=== PATIENT | female | born 1990 | race Caucasian/White ===

== ENCOUNTER 2019-07-17 20:42 | Inpatient (IN) | payer OTHER ==
[~2019-07-17] VITALS: Ht 167.6 cm; Wt 102.5 kg
[2019-07-17] MEDS ORDERED: METHYLERGONOVINE 0.2 MG/ML AMP IM PRN (21:55)
[2019-07-17] MEDS ORDERED: OXYTOCIN 20 UNITS in LACTATED RINGERS 1,000 ML IV SCH (21:55)
[2019-07-17] MEDS ORDERED: fentaNYL 0.05 MG/ML VIAL IVP PRN (21:55)
[2019-07-17 22:41] LABS: BASOPHILS % (AUTO) 0.3 % (0.0-2.0); EOSINOPHILS % (AUTO) 0.4 % (0.0-4.0); HEMATOCRIT 36.3 % (36-48); HEMOGLOBIN 12.3 g/dL (12.0-16.0); LYMPHOCYTES # (AUTO) 1.5 K/uL (2.5-16.5); LYMPHOCYTES % (AUTO) 17.2 % (20.5-51.1); MEAN CORPUSCULAR HEMOGLOBIN 30 pg (27-31); MEAN CORPUSCULAR HGB CONC 34 g/dL (33-37); MEAN CORPUSCULAR VOLUME 88.8 fL (80-94); MONOCYTES # (AUTO) 0.5 K/uL (0.8-1.0); MONOCYTES % (AUTO) 6.2 % (1.7-9.3); NEUTROPHILS # (AUTO) 6.5 K/uL (1.8-7.7); NEUTROPHILS % (AUTO) 75.9 % (42.2-75.2); PLATELET COUNT (AUTO) 148 K/uL (140-450); RED BLOOD CELL COUNT(AUTO) 4.09 MIL/uL (4.20-5.40); RED CELL DISTRIBUTION WIDTH 14.6 % (11.6-13.7); WHITE BLOOD COUNT (AUTO) 8.5 K/uL (4.8-10.8)
[2019-07-17 22:54] LABS: APPEARANCE,URINE CLEAR (CLEAR); BILIRUBIN,URINE NEGATIVE (NEGATIVE); BLOOD, URINE 1+ (NEGATIVE); COLOR,URINE YELLOW (YELLOW); LEUKOCYTE ESTERASE ,URINE NEGATIVE (NEGATIVE); NITRITE, URINE NEGATIVE (NEGATIVE); PH,URINE 6.5 (5.0-9.0); UGLUCOSE NEGATIVE (NEGATIVE)
[2019-07-17 22:55] LABS: ALBUMIN 2.6 g/dL (3.4-5.0); CREATININE 0.7 mg/dL (0.6-1.3); TOTAL BILIRUBIN 0.3 mg/dL (0.0-1.0)
[2019-07-17 23:13] VITALS: BP 120/68
[2019-07-17 23:34] LABS: RBC,URINE 11-20 (MOD) /HPF (0-5); WBC,URINE 0-5 /HPF (0-5)
[2019-07-17] MEDS ORDERED: AMPICILLIN 2,000 MG in NACL 0.9% 100 ML IV SCH (23:50)
[2019-07-17] MEDS ORDERED: AMPICILLIN 2,000 MG VIAL ONE (23:53)
[2019-07-18] MEDS ORDERED: OXYTOCIN 20 UNITS/LR PREMIX 1,000 ML IV ONE (01:00)
[2019-07-18] MEDS ORDERED: AMPICILLIN 1,000 MG VIAL ONE ×5 (03:59→19:55)
[2019-07-18] MEDS: AMPICILLIN 1,000 MG in NACL 0.9% 50 ML IV SCH ×4 (04:05→16:09)
[2019-07-18] MEDS: LACTATED RINGERS 1,000 ML IV SCH ×2 (06:12→16:07)
[2019-07-18] MEDS: MISOPROSTOL 25 MCG TAB VG PRN ×2 (09:35→15:35)
--- NOTE | 2019-07-18 09:49 | NUR ---
PATIENT HAS BEEN SCREENED AND CATEGORIZED LOW NUTRITION RISK. PATIENT WILL BE SEEN WITHIN 7 DAYS OF ADMISSION. 07/24/[address]
[2019-07-18] MEDS ORDERED: MISOPROSTOL 25 MCG TAB VG SCH (10:00)
[2019-07-19] MEDS ORDERED: AMPICILLIN 1,000 MG VIAL ONE (00:04)
[2019-07-19] MEDS: LACTATED RINGERS 1,000 ML IV SCH ×2 (00:53→02:02)
[2019-07-19] MEDS ORDERED: ROPIVACAINE 0.2%/NS PREMIX 200 ML EPI ONE (01:18)
[2019-07-19] MEDS ORDERED: MORPHINE SULFATE 10 MG/ML VIAL ONE (03:22)
[2019-07-19] MEDS ORDERED: PROMETHAZINE 25 MG/ML VIAL IVP SCH (03:25)
[2019-07-19] MEDS ORDERED: MORPHINE SULFATE 4 MG/ML SYR IVP SCH (03:25)
[2019-07-19] MEDS ORDERED: LIDOCAINE 1% 500 MG/50 ML VIAL ONE (03:30)
[2019-07-19] MEDS ORDERED: BENZOCAINE/MENTHOL 20%-0.5% 60 GM CAN TP PRN (04:15)
[2019-07-19] MEDS ORDERED: OXYTOCIN 10 UNITS/ML VIAL IM PRN (04:15)
[2019-07-19] MEDS ORDERED: DOCUSATE SODIUM 100 MG GELCAP PO PRN (04:15)
[2019-07-19] MEDS ORDERED: METHYLERGONOVINE 0.2 MG TAB PO PRN (04:15)
[2019-07-19] MEDS ORDERED: SIMETHICONE 80 MG TAB.CHEW PO PRN (04:15)
[2019-07-19] MEDS ORDERED: BISACODYL 5 MG TABEC PO PRN (04:15)
[2019-07-19] MEDS ORDERED: MEASLES, MUMPS, AND RUBELLA 1 VIAL SQVAC PRN (04:15)
[2019-07-19] MEDS ORDERED: METHYLERGONOVINE 0.2 MG/ML AMP IM PRN (04:15)
[2019-07-19] MEDS ORDERED: IBUPROFEN 800 MG TAB PO PRN (04:15)
[2019-07-19] MEDS ORDERED: IBUPROFEN 600 MG TAB PO PRN ×2 (04:15)
[2019-07-19 04:17] VITALS: BP 114/57
[2019-07-20 08:09] LABS: HEMATOCRIT 35.4 % (36-48); HEMOGLOBIN 11.9 g/dL (12.0-16.0)
== END 2019-07-20 12:20 | disposition home or self-care (01) | DRG 560 ==
LOC: MLD 20:42 → MFCC 07-19 06:30
PROVIDERS: ADMIT Obstetrics & Gynecology; ATTEND Obstetrics & Gynecology
PROC: 3E0P7VZ Introduction of Hormone into Female Reproductive, Via Natural or Artificial Opening (ICD-10-PCS; 2019-07-18)
PROC: 10E0XZZ Delivery of Products of Conception, External Approach (ICD-10-PCS; principal; 2019-07-19)
PROC: 0KQM0ZZ Repair Perineum Muscle, Open Approach (ICD-10-PCS; 2019-07-19)
PROC: 0UQMXZZ Repair Vulva, External Approach (ICD-10-PCS; 2019-07-19)
PROC: 00HU33Z Insertion of Infusion Device into Spinal Canal, Percutaneous Approach (ICD-10-PCS; 2019-07-19)
PROC: 3E0R3BZ Introduction of Anesthetic Agent into Spinal Canal, Percutaneous Approach (ICD-10-PCS; 2019-07-19)
PROC: 3E0234Z Introduction of Serum, Toxoid and Vaccine into Muscle, Percutaneous Approach (ICD-10-PCS; 2019-07-20)
DX: O70.1 Second degree perineal laceration during delivery (principal); O71.82 Other specified trauma to perineum and vulva; O99.824 Streptococcus B carrier state complicating childbirth; O76 Abnormality in fetal heart rate and rhythm complicating labor and delivery; O77.0 Labor and delivery complicated by meconium in amniotic fluid; Z37.0 Single live birth; Z23 Encounter for immunization; Z3A.39 39 weeks gestation of pregnancy
CPT/HCPCS: 36415; 76815; 80053; 81001; 85018; 85025; 86592; 86886; 86900; 86901; 87086; 90715; J0290; J2001; J2270; J2590; J2795; J3010; J7120; Q0092